=== PATIENT | female | born 1955 ===

== ENCOUNTER 2021-09-13 09:00 | Inpatient (IN) | payer OTHER ==
[~2021-09-13] VITALS: Ht 162.6 cm; Wt 67.1 kg
[2021-09-13] MEDS ORDERED: METFORMIN HCL1000 M1 PO (14:54)
[2021-09-13] MEDS ORDERED: ZESTRIL20 MG PO (14:55)
[2021-09-13] MEDS ORDERED: GLIPIZIDE10 MG PO (14:55)
[2021-09-13] MEDS ORDERED: ATORVASTATIN CA20 MG PO (14:56)
[2021-09-18] MEDS ORDERED: CANDESARTAN CIL16 MG (07:56)
[2021-09-18] MEDS ORDERED: AMLODIPINE BESY10 MG (07:56)
[2021-09-18] MEDS ORDERED: COMBIGAN EYE DRO5 ML (07:56)
[2021-09-18] MEDS ORDERED: GLYXAMBI 10 MG1 EACH (07:56)
[2021-09-18] MEDS ORDERED: FARXIGA10 MG (07:57)
[2021-09-21] MEDS ORDERED: OXYC1TAB9 PO (13:17)
[2021-09-21] MEDS ORDERED: HYOSCYAMINE0.125 M1 SL (13:18)
[2021-09-21] MEDS ORDERED: INTESTINEX680 M1 PO (13:18)
[2021-09-21] MEDS ORDERED: PANTOPRAZOLE SO40 MG PO (13:18)
== END 2021-09-21 13:41 | disposition home or self-care (01) | DRG 331 ==
LOC: O/R 09-18 06:00 → SURH 09-18 09:00 → SURG 09-19 10:41
PROVIDERS: ADMIT Surgery; ATTEND Surgery
PROC: 07BB4ZZ Excision of Mesenteric Lymphatic, Percutaneous Endoscopic Approach (ICD-10-PCS; 2021-09-18)
PROC: 0DTF4ZZ Resection of Right Large Intestine, Percutaneous Endoscopic Approach (ICD-10-PCS; principal; 2021-09-18 11:45)
DX: D12.0 Benign neoplasm of cecum (principal); D12.1 Benign neoplasm of appendix; R59.0 Localized enlarged lymph nodes; R10.32 Left lower quadrant pain; R19.4 Change in bowel habit; I12.9 Hypertensive chronic kidney disease with stage 1 through stage 4 chronic kidney disease, or unspecified chronic kidney disease; E11.22 Type 2 diabetes mellitus with diabetic chronic kidney disease; N18.30 Chronic kidney disease, stage 3 unspecified; Z20.822 Contact with and (suspected) exposure to COVID-19